=== PATIENT | female | born 1955 | race African-American/Black ===

== ENCOUNTER 2016-04-16 05:41 | Inpatient (IN) | payer OTHER ==
[~2016-04-16] VITALS: Ht 160 cm; Wt 123.8 kg
[2016-04-16] MEDS ORDERED: DIFLUCAN150 M1 PO (05:58)
[2016-04-16] MEDS ORDERED: VERAPAMIL ER P300 MG PO (05:58)
[2016-04-16] MEDS ORDERED: LISINOPRIL-HCT1 EAC1 PO (05:58)
--- NOTE | 2016-04-16 06:14 | ED GENERAL ADULT ---
See Addendum History of Present Illness General Chief Complaint: General Adult Stated Complaint: DRY MOUTH Source: patient Exam Limitations: no limitations Vital Signs & Intake/Output Vital Signs & Intake/Output Vital Signs Date Time Temp Pulse Resp B/P Pulse O2 O2 Flow FiO2 Ox Delivery Rate 04/16 0555 98.2 113 20 129/87 98 Room Air Allergies Coded Allergies: No Known Allergies (04/16/16) Reconcile Medications Fluconazole (Diflucan) 150 MG TABLET 1 TAB PO ONCE INFECTION (Reported) Lisinopril/Hydrochlorothiazide (Lisinopril-Hctz 20-25 MG Tab) 20 MG-25 MG TABLET 1 TAB PO DAILY HTN (Reported) Verapamil HCl (Verapamil ER Pm) 300 MG CAP24H.PCT 300 MG PO DAILY HTN ( Reported) Triage Note: PER PT DRY MOUTH COTTON MOUTH X 4 DAYS BEEN TAKING FLUCONAZOLE Q WEEK X 4. TONGUE ALL BLISTERY AND DIZZY FOR A WEEK. Triage Nurses Notes Reviewed? yes Onset: Gradual Duration: day(s): Timing: recent history Injury Environment: home Severity: mild, moderate Modifying Factors: Improves With: rest. HPI: 60 yo woman h/o hypertension, presents with dry mouth for the past 3-4 days. She notes that she has been having an itchy rash in her external genitalia for the past several weeks. She has been taking diflucan weekly for the past three weeks, "but it makes my mouth dry so I won't take it any more." She notes polydipsia and polyuria. No fever, chills, chest pain, shortness of breath, diarrhea, nausea, vomiting. (GALDINO ALMANZA,GINGER Stinson) Past History Travel History Traveled to [place] past 21 day No Medical History Any Pertinent Medical History? see below for history Neurological: NONE EENT: NONE Cardiovascular: hypertension Respiratory: NONE Gastrointestinal: NONE Hepatic: NONE Renal: NONE Musculoskeletal: NONE Psychiatric: NONE Endocrine: NONE Surgical History Surgical History: none Psychosocial History What is your primary language New Zealander Tobacco Use: Never used Family History Comment: mother with diabetes Hx Contributory? Yes (GALDINO ALMANZA,GINGER Stinson) Review of Systems Review of Systems Constitutional: Reports: no symptoms. EENTM: Reports: no symptoms. Respiratory: Reports: no symptoms. Cardiovascular: Reports: no symptoms. GI: Reports: no symptoms. Genitourinary: Reports: no symptoms. Musculoskeletal: Reports: no symptoms. Skin: Reports: no symptoms. Neurological/Psychological: Reports: no symptoms. Hematologic/Endocrine: Reports: no symptoms. Immunologic/Allergic: Reports: no symptoms. All Other Systems: Reviewed and Negative (GALDINO ALMANZA,GINGER Stinson) Physical Exam Physical Exam General Appearance: well developed/nourished, mild distress Head: atraumatic, normal appearance Eyes: Bilateral: normal appearance. Ears, Nose, Throat: normal pharynx, normal ENT inspection, dry mucosa Neck: normal inspection, supple, full range of motion Respiratory: normal breath sounds, chest non-tender, no respiratory distress, quiet respiration, lungs clear Cardiovascular: regular rate/rhythm Gastrointestinal: normal bowel sounds, soft, non-tender Back: normal inspection Extremities: normal inspection Skin: external genitalia - white creamy discharge in vulval folds c/w yeast. Core Measures ACS in differential dx? No CVA/TIA Diagnosis: No Severe Sepsis Present: No Septic Shock Present: No (GALDINO ALMANZA,GINGER Stinson) Progress Differential Diagnoses I considered the following diagnoses in my evaluation of the patient: diabetes, renal failure, dehydration, vaginal yeast infection vs other. Plan of Care: Orders Procedure Date/time Status Consistent Carbohydrate 1 04/16 L Active Patient Data 04/16 0741 Active Admit to inpatient 04/16 0733 Active Vital Signs 04/16 0733 Active Code Status 04/16 0733 Active MIXED VENOUS BLOOD GAS (GEN) 04/16 06 Active URINALYSIS 04/16 0621 Active TROPONIN LEVEL 04/16 06 Complete COMPREHENSIVE METABOLIC PANEL 04/16 06 Complete CBC WITHOUT DIFFERENTIAL 04/16 620 Complete ACETONE 04/16 620 Complete EKG 04/16 06 Active Current Medications Sig/Davian Start time Last Medication Dose Stop Time Status Admin Insulin Human Regular 100 UNIT Q24H 04/16 0700 AC (Novolin R (Insulin Drip)) Sodium Chloride 100 ML (Normal Saline 0.9%) Laboratory Tests 04/16/16 0725: Urine Color Pending, Urine Clarity Pending, Urine pH Pending, Ur Specific [place] Pending, Urine Protein Pending, Urine Ketones Pending, Urine Nitrite Pending, Urine Bilirubin Pending, Urine Urobilinogen Pending, Ur Leukocyte Esterase Pending, Ur Microscopic SEDIMENT EXAMINED, Urine RBC Pending, Urine Hemoglobin Pending, Urine Glucose Pending 04/16/16 0625: Bicarbonate Actual 28 H, Mixed VBG pH 7.43 H, Mixed VBG pCO2 43, Mixed VBG O2 Saturation 66 H, P-50 (Temp Corrected) N, Carboxyhemoglobin 1.3 L, Anion Gap 16, Estimated GFR > 60, BUN/Creatinine Ratio 25.0, Glucose 752 *H, Calcium 9.3, Total Bilirubin 0.8, AST 17, ALT 31, Alkaline Phosphatase 91, Troponin I < 0.01, Total Protein 8.2, Albumin 4.1, Globulin 4.1, Albumin/Globulin Ratio 1.0 L, CBC w Diff NO MAN DIFF REQ, RBC 5.08, MCV 85.4, MCH 28.5, RDW 13.7, MPV 10.1, Gran % 53.8, Lymphocytes % 34.4, Monocytes % 7.9, Eosinophils % 2.9, Basophils % 1.0, Absolute Granulocytes 3.1, Absolute Lymphocytes 2.0, Absolute Monocytes 0.5, Absolute Eosinophils 0.2, Absolute Basophils 0.1, PUBS MCHC 33.3, Phlebotomy Draw Site VENOUS, Acetone Level NEGATIVE Patient admitted to ICU by Dr. Huitron. (ANA ROSA RDZ MD) Initial ED EKG: pending Hand-Off Endorsed To: ANA ROSA RDZ MD Endorsed Time: 0700 Pending: labs (GINGER HUITRON MD) Departure Departure Disposition: STILL A PATIENT Condition: Stable Clinical Impression Primary Impression: Hyperglycemia Secondary Impressions: Diabetes, Vaginal yeast infection Referrals: ARY ALMANZA,RENETTA Perez (PCP/Family) Referred to [facility] as new patient No Departure Forms: Customer Survey General Discharge Information Comments 04/16/16, 6:27am... pt with glucose >500 on finger stick... Implications discussed at length with patient including the diagnosis of diabetes. (GALDINO ALMANZA,GINGER Stinson) Critical Care Note Critical Care Note Critical Care Time: non-applicable (GINGER HUITRON MD)
[2016-04-16 06:34] LABS: ABSOLUTE BASOPHIL COUNT 0.1 /CUMM (0.0-0.2); ABSOLUTE EOSINOPHIL COUNT 0.2 /CUMM (0.0-0.7); ABSOLUTE GRANULOCYTE CT 3.1 /CUMM (1.4-6.5); ABSOLUTE MONOCYTE COUNT 0.5 /CUMM (0.10-0.60); EOSINOPHIL % 2.9 % (0-5); GRANULOCYTE % 53.8 % (42.2-75.2); HEMATOCRIT 43.4 % (37-47); MEAN CORPUSCULAR HGB 28.5 PG (27.0-31.0); MEAN CORPUSCULAR HGB CONC 33.3 G/DL (33.0-37.0); MEAN CORPUSCULAR VOLUME 85.4 FL (81.0-99.0); MEAN PLATELET VOLUME 10.1 FL (7.4-10.4); PLATELET COUNT 217 /CUMM (130-400); RBC DISTRIBUTION WIDTH 13.7 % (11.5-14.5); RED BLOOD CELL CT 5.08 /CUMM (4.20-5.40); WHITE BLOOD CELL COUNT 5.7 /CUMM (4.8-10.8)
--- NOTE | 2016-04-16 09:23 | History & Physical ---
ASHWINI LARA MD 04/16/16 0917: General Information and HPI MD Statement: I have seen and personally examined ANNIE BENSON and documented this H&P. The patient is a 60 year old F who presented with a patient stated chief complaint of [dry mouth, polydipsia and polyuria]. Source of Information: patient Exam Limitations: no limitations History of Present Illness: This is 60 Yr old obese female with PMH of HTN presented to ER with chief c/o 3 days history of dry mouth with difficulty swallowing, polydipsia and polyuria. Patient had tooth extracted a month ago and completed 1 week of antibiotic at that time followed by colonoscopy 3 weeks back. She started c/o genital itching 3 weeks ago and was started on Diflucan by her STAFFING CONSULTANT for yeast infection. She completed total 3 weeks course of 1 per week Diflucan. 3-5 days patient has noted significant dry mouth which she attributed to Diflucan treatment. She also reported polydipsia and polyuria with generalized weakness and occasional blurring of vision. She contacted her asphalt plant worker this morning and she recommended her to come to the emergency department for further evaluation. On arrival patient noted very dehydrated and her labs revealed significant elevated blood glucose of 752 without anion gap acidosis and her acetone level noted negative suggestive of newly diagnosed diabetes with hyperosmolar nonketotic hyperglycemia. She reported having urinary burning and itching. She also reported drinking 100% apple and grape juice for past 3 days as she was unable to tolerate water. She denies any chest pain, shortness of breath, nausea /vomiting/diarrhea, abdominal pain, fever, chills, sick contacts. Patient is very hungry and wants to try regular food. Her vitals on admission were T 98.2, HR 113, RR 20, BP 174/73, O2 sat 97% on room air. Patient received total of 8 U insulin in ER and her blood sugar went down to 453. Patient was started on IV insulin drip by ER physician after discussing the case with environmental protection geologist combination welder. Allergies/Medications Allergies: Coded Allergies: No Known Allergies (04/16/16) Home Med list Fluconazole (Diflucan) 150 MG TABLET 1 TAB PO ONCE INFECTION (Reported) Lisinopril/Hydrochlorothiazide (Lisinopril-Hctz 20-25 MG Tab) 20 MG-25 MG TABLET 1 TAB PO DAILY HTN (Reported) Verapamil HCl (Verapamil ER Pm) 300 MG CAP24H.PCT 300 MG PO DAILY HTN ( Reported) Compliance With Home Meds: GOOD Past History Travel History Traveled to [place] past 21 day No Medical History Neurological: NONE EENT: NONE Cardiovascular: hypertension Respiratory: NONE Gastrointestinal: NONE Hepatic: NONE Renal: NONE Musculoskeletal: NONE Psychiatric: NONE Endocrine: NONE Cancer(s): NONE Surgical History Surgical History: none Past Family/Social History Family History Relations & Conditions if any MOTHER FH: diabetes mellitus Psychosocial History Where do you live? Home Who Do You Live With? spouse Services at Home: None Primary Language: Telugu Smoking Status: Never Smoked ETOH Use: denies use Illicit Drug Use: denies illicit drug use Functional Ability ADLs Independent: dressing, eating, toileting, bathing. Ambulation: independent IADLs Independent: shopping, housework, finances, food prep, telephone, transportation , medication admin. Employment History Employment Unemployed Review of Systems Review of Systems Constitutional: Reports: weakness. Denies: chills, fever. EENTM: Reports: blurred vision. Cardiovascular: Denies: chest pain, orthopena, palpitations, peripheral edema. Respiratory: Denies: cough, short of breath, wheezing. GI: Denies: abdominal pain, diarrhea, nausea, vomiting. Genitourinary: Reports: frequency. Denies: pain. Musculoskeletal: Denies: back pain. Skin: Denies: rash. Neurological/Psychological: Denies: anxiety, depressed, headache, numbness, tingling. Hematologic/Endocrine: Denies: bleeding. Exam & Diagnostic Data Last 24 Hrs of Vital Signs/I&O Vital Signs Date Time Temp Pulse Resp B/P Pulse O2 O2 Flow FiO2 Ox Delivery Rate 04/16 0850 98.3 105 20 145/64 95 Room Air 04/16 0800 98.3 104 20 174/73 97 Room Air 04/16 0555 98.2 113 20 129/87 98 Room Air Intake & Output 04/16 1600 04/16 0800 04/16 0000 Intake Total 1000 1000 Output Total Balance 1000 1000 Intake, IV 1000 1000 Physical Exam General Appearance Alert, Oriented X3, Cooperative, No Acute Distress Skin No Rashes, noted dry skin HEENT Atraumatic, PERRLA, EOMI, dry mucous membrane Neck Supple Cardiovascular Regular Rate, Normal S1, Normal S2, No Murmurs Lungs Clear to Auscultation, Normal Air Movement Abdomen Normal Bowel Sounds, Soft, No Tenderness Neurological Normal Speech, Strength at 5/5 X4 Ext, Normal Tone, Sensation Intact, Cranial Nerves 3-12 NL Extremities No Edema, Normal Pulses Vascular Normal Pulses, Pulses Symmetrical Last 24 Hrs of Labs/Renny: Laboratory Tests 04/16/16 0725: Urinalysis LIGHT H, Urine Color STRAW, Urine Clarity CLEAR, Urine pH 6.0, Ur Specific [place] <= 1.005, Urine Protein NEG, Urine Ketones 40 H, Urine Nitrite NEG, Urine Bilirubin NEG, Urine Urobilinogen 0.2, Ur Leukocyte Esterase NEG, Ur Microscopic SEDIMENT EXAMINED, Urine RBC 1-3, Urine WBC 1-3 H, Ur Epithelial Cells OCCAS, Urine Hemoglobin TRACE-INTACT, Urine Glucose >=1000 H 04/16/16 0625: Bicarbonate Actual 28 H, Mixed VBG pH 7.43 H, Mixed VBG pCO2 43, Mixed VBG O2 Saturation 66 H, P-50 (Temp Corrected) N, Carboxyhemoglobin 1.3 L, Anion Gap 16, Estimated GFR > 60, BUN/Creatinine Ratio 25.0, Glucose 752 *H, Serum Osmolality Pending, Calcium 9.3, Total Bilirubin 0.8, AST 17, ALT 31, Alkaline Phosphatase 91, Troponin I < 0.01, Total Protein 8.2, Albumin 4.1, Globulin 4.1, Albumin/Globulin Ratio 1.0 L, CBC w Diff NO MAN DIFF REQ, RBC 5.08, MCV 85.4, MCH 28.5, RDW 13.7, MPV 10.1, Gran % 53.8, Lymphocytes % 34.4, Monocytes % 7.9, Eosinophils % 2.9, Basophils % 1.0, Absolute Granulocytes 3.1, Absolute Lymphocytes 2.0, Absolute Monocytes 0.5, Absolute Eosinophils 0.2, Absolute Basophils 0.1, PUBS MCHC 33.3, Phlebotomy Draw Site VENOUS, Acetone Level NEGATIVE Diagnostic Data EKG Results Sinus tachycardia with rate of 107 noted nonspecific T-wave inversion in lead 1 aVL without reciprocal changes, QTC 465 CXR Results none Assessment/Plan Assessment: This is 60-year-old obese female with past medical history of hypertension presented to ER with chief complaint of 3 day history of dry mouth, polydipsia, polyuria infrequent yeast infection found to have elevated blood sugar of 758 on admission with significant dehydration suggestive of newly diagnosed diabetes with hyperosmolar nonketotic state. 1. HHS with newly diagnosed diabetes - Admit to ICU - Continue insulin GTT and titrate - Aggressive IV fluid hydration with normal saline at 1 50 mL per hour - Once blood sugar comes down < 200, we'll switch her to subcutaneous insulin - Nutrition consult for diabetic diet - Insulin education - Repeat BEP in 4 hours to assess for metabolic derangement - Check HbA1c 2. Sinus tachycardia - Likely secondary to dehydration - Patient denies any leg swelling, or cough muscle tenderness - If persistent tachycardia will assess for blood clot 3. Hypertension - Start home antihypertensive medication including verapamil 300 mg daily, lisinopril 20 mg daily and HCTZ 25 mg daily - Monitor BP 4. Hyponatremia - Secondary to hyperosmolar state - Corrected sodium is 140 - Monitor electrolytes 5. DVT prophylaxis Subcutaneous Lovenox 6. Full code As Ranked By This Provider Problem List: 1. Hyperglycemia 2. Diabetes 3. Vaginal yeast infection 4. Sinus tachycardia 5. Hypertension Core Measures/Miscellaneous Acute Coronary Syndrome ACS Diagnosis: No Cerebrovascular Accident CVA/TIA Diagnosis: No Congestive Heart Failure CHF Diagnosis: No Venous Thromboembolism VTE Risk Factors: Age > 40, Obesity VTE Prophylaxis Ordered Inpt: Pharm- Lovenox No Mech VTE prophylaxis d/t: No contraindications No VTE Pharm Prophylaxis d/t: No contraindications VTE Diagnosis: No VTE Type: NONE VTE Confirmed by (Test): NONE Severe Sepsis Severe Sepsis Present: No Septic Shock Septic Shock Present: No Miscellaneous Documentation Attending Case Discussed With: EM TORRES M.D Primary Care Physician: RENETTA MCALLISTER MD Patient sees these Specialists OBGYN Level of Patient Care: Critical Care (CRI) Consults Needed: Consulting Specialty: Endocrinology Consulting Physician: Dr. burrows Reason for Consult: newly diagnosed diabetes, [facility] Resident Review Statement Resident Statement: examined this patient, reviewed EMR data (avail), reviewed images, amended to note Other Findings: see HPI EM TORRES MD 04/16/16 1146: Attending MD Review Statement Attending Statement Attending MD Statement: examined this patient, discuss w/resident/PA/SPRING PRODUCTION SUPERVISOR, agreed w/resident/PA/SPRING PRODUCTION SUPERVISOR, reviewed EMR data (avail), discussed with nursing, amended to note Attending Assessment/Plan: Patient seen and examined. Referred to the emergency room by asphalt plant worker due to fungal vaginitis corresponding to outpatient antifungal therapy. Found to be markedly hyperglycemic with no evidence of acidosis. Patient denies any previous history of diabetes. She does have a history of [id number] diabetes in her mother. She reports her primary care provider has no notified of elevated blood glucose in the past. She does have a history of hypertension which she reports is better controlled on her current antihypertensive medications. She is currently alert and oriented 3. She is hemodynamically stable. Plan: -I agree with admission to the intensive care unit for insulin infusion per hyperglycemia protocol. -Check hemoglobin A1c to assist in decision-making regarding oral hypoglycemic medication versus insulin therapy upon discharge. -Please provide diabetic teaching. -Endocrinology consultation was placed. Her blood glucose level is currently trending down with insulin infusion and IV hydration. -Continue blood pressure control with her SUSANNAH inhibitor. I would hold her diuretic therapy for now and resume upon discharge. She fortunately has no proteinuria on urinalysis. -Psuedohyponatremia is secondary to her hyperglycemia. Monitor serum chemistry. -DVT prophylaxis with LMWH. -Obtain vaginal swab and send for pH, microscopy and potassium hydroxide wet mount.
[2016-04-16 10:46] VITALS: BP 130/70
--- NOTE | 2016-04-16 11:46 | Admission Certification ---
Admission Certification Certification Statement - As attending physician, I certify that at the time of - admission, based on clinical presentation, severity of - symptoms, need for further diagnostic testing and - therapeutic interventions, and risk of adverse outcomes - without in-hospital treatment, in my clinical assessment, - this patient requires an acute hospital stay for a minimum - of two nights or longer. I have also considered psychsocial - factors such as support system, advanced age, financial - issues, cognitive issues, and failed out-patient treatments, - past re-admission history, safety of patient, and lack of - compliance as applicable. Specific rationale supporting this admission is: Patient requires insulin infusion.
--- NOTE | 2016-04-16 12:23 | Cons- Endocrinology ---
General Information and HPI Consulting Request Date of Consult: 04/16/16 Requested By: ICU team Reason for Consult: management of newly diagnosed DM type 2/hyperosmolar hyperglycemic state. Source of Information: patient, old records Exam Limitations: no limitations History of Present Illness: 60 y/o pradip nicaraguan female, obese female with PMH of HTN presented to ER with chief c/o 3 days history of dry mouth with difficulty swallowing, blurred vision , polydipsia and polyuria. In ER, her glucose level was 752, acetone was negative and HbA1c is pending. She received 2 liters of NS in ER. Now she is on NS 150 ml/hour, insulin drip at 4 units per hour. Her recent FSGs were 385 and 337. Repeat lab was drawn at 11: 27 am and the report is still pending. patient has felt much better at this point. Allergies/Medications Allergies: Coded Allergies: No Known Allergies (04/16/16) Home Med List: Fluconazole (Diflucan) 150 MG TABLET 1 TAB PO ONCE INFECTION (Reported) Lisinopril/Hydrochlorothiazide (Lisinopril-Hctz 20-25 MG Tab) 20 MG-25 MG TABLET 1 TAB PO DAILY HTN (Reported) Verapamil HCl (Verapamil ER Pm) 300 MG CAP24H.PCT 300 MG PO DAILY HTN ( Reported) Review of Systems Review of Systems Constitutional: Reports: see HPI, malaise. EENTM: Reports: blurred vision. Cardiovascular: Denies: chest pain. Respiratory: Denies: short of breath. GI: Denies: abdominal pain. Genitourinary: Reports: dysuria (yeast infection s/p Diflucan). Hematologic/Endocrine: Reports: polyuria, polydipsia. Past History Travel History Traveled to [facility] past 21 day No Medical History Blood Transfusion Hx: No Neurological: NONE EENT: NONE Cardiovascular: hypertension Respiratory: NONE Gastrointestinal: NONE Hepatic: NONE Renal: NONE Musculoskeletal: NONE Psychiatric: NONE Endocrine: NONE Blood Disorders: NONE Cancer(s): NONE DOCUMENT PREPARATION SPECIALIST/Reproductive: yeast infections Surgical History Surgical History: 1 Family History Relations & Conditions If Any: MOTHER FH: diabetes mellitus Psychosocial History Where Do You Live? Home Who Do You Live With? spouse Services at Home: None Primary Language: Paraguayan Smoking Status: Never Smoked ETOH Use: denies use Illicit Drug Use: denies illicit drug use Functional Ability ADLs Independent: dressing, eating, toileting, bathing. Ambulation: independent IADLs Independent: shopping, housework, finances, food prep, telephone, transportation , medication admin. Employment History Employment: Unemployed Exam & Diagnostic Data Last 24 Hrs of Vital Signs/I&O Vital Signs Date Time Temp Pulse Resp B/P Pulse O2 O2 Flow FiO2 Ox Delivery Rate 04/16 1206 101 149/71 04/16 1046 97.6 104 24 130/70 98 Room Air Room Air 04/16 1037 97 Room Air Room Air 04/16 0850 98.3 105 20 145/64 95 Room Air 04/16 0800 98.3 104 20 174/73 97 Room Air 04/16 0555 98.2 113 20 129/87 98 Room Air Intake & Output 04/16 1600 04/16 0800 04/16 0000 Intake Total 1000 1000 Output Total Balance 1000 1000 Intake, IV 1000 1000 Patient 283 lb Weight Physical Exam General Appearance: obese Neck: normal inspection Respiratory: lungs clear Cardiovascular: tachycardia Gastrointestinal: soft, non-tender Extremities: no edema Labs/Renny Results: Laboratory Tests 04/16 04/16 04/16 1127 0725 0625 Chemistry Sodium Pending Potassium Pending Chloride Pending Carbon Dioxide Pending Anion Gap Pending BUN Pending Creatinine Pending Glucose Pending Hemoglobin A1c Pending Calcium Pending Phosphorus Pending Magnesium Pending Total Bilirubin Pending AST Pending ALT Pending Albumin Pending Urines Urinalysis LIGHT H Urine Color (YEL,AMB,STR) STRAW Urine Clarity (CLEAR) CLEAR Urine pH (5.0 - 8.0) 6.0 Ur Specific [place] (1.001 - 1.035) <= 1.005 Urine Protein (NEG,<30 MG/DL) NEG Urine Ketones (NEG) 40 H Urine Nitrite (NEG) NEG Urine Bilirubin (NEG) NEG Urine Urobilinogen (0.1 - 1.0 EU/dl) 0.2 Ur Leukocyte Esterase (NEG) NEG Ur Microscopic SEDIMENT EXAMINED Urine RBC (0 - 5 /HPF) 1-3 Urine WBC (0 - 2 /HPF) 1-3 H Ur Epithelial Cells (NONE,FEW) OCCAS Urine Hemoglobin (NEG) TRACE-INTACT Urine Glucose (N MG/DL) >=1000 H 04/16 0625 Blood Gas Bicarbonate Actual (22 - 26 MEQ/L) 28 H Mixed VBG pH (7.31 - 7.41 PH) 7.43 H Mixed VBG pCO2 (41 - 51 TORR) 43 Mixed VBG O2 Saturation (35 - 45 TORR) 66 H P-50 (Temp Corrected) N Carboxyhemoglobin (1.5 - 5.0 %) 1.3 L Chemistry Sodium (137 - 145 mmol/L) 129 L Potassium (3.5 - 5.1 mmol/L) 4.4 Chloride (98 - 107 mmol/L) 84 L Carbon Dioxide (22 - 30 mmol/L) 29 Anion Gap (5 - 16) 16 BUN (7 - 17 mg/dL) 15 Creatinine (0.5 - 1.0 mg/dL) 0.6 Estimated GFR (>60 ml/min) > 60 BUN/Creatinine Ratio (7 - 25 %) 25.0 Glucose (65 - 99 mg/dL) 752 *H Serum Osmolality (285 - 295 MOSM/KG) 323 H Calcium (8.4 - 10.2 mg/dL) 9.3 Total Bilirubin (0.2 - 1.3 mg/dL) 0.8 AST (14 - 36 U/L) 17 ALT (9 - 52 U/L) 31 Alkaline Phosphatase (<127 U/L) 91 Troponin I (< 0.11 ng/ml) < 0.01 Total Protein (6.3 - 8.2 g/dL) 8.2 Albumin (3.5 - 5.0 g/dL) 4.1 Globulin (1.9 - 4.2 gm/dL) 4.1 Albumin/Globulin Ratio (1.1 - 2.2 %) 1.0 L Hematology CBC w Diff NO MAN DIFF REQ WBC (4.8 - 10.8 /CUMM) 5.7 RBC (4.20 - 5.40 /CUMM) 5.08 Hgb (12.0 - 16.0 G/DL) 14.5 Hct (37 - 47 %) 43.4 MCV (81.0 - 99.0 FL) 85.4 MCH (27.0 - 31.0 PG) 28.5 RDW (11.5 - 14.5 %) 13.7 Plt Count (130 - 400 /CUMM) 217 MPV (7.4 - 10.4 FL) 10.1 Gran % (42.2 - 75.2 %) 53.8 Lymphocytes % (20.5 - 51.1 %) 34.4 Monocytes % (1.7 - 9.3 %) 7.9 Eosinophils % (0 - 5 %) 2.9 Basophils % (0.0 - 2.0 %) 1.0 Absolute Granulocytes (1.4 - 6.5 /CUMM) 3.1 Absolute Lymphocytes (1.2 - 3.4 /CUMM) 2.0 Absolute Monocytes (0.10 - 0.60 /CUMM) 0.5 Absolute Eosinophils (0.0 - 0.7 /CUMM) 0.2 Absolute Basophils (0.0 - 0.2 /CUMM) 0.1 PUBS MCHC (33.0 - 37.0 G/DL) 33.3 Miscellaneous Phlebotomy Draw Site VENOUS Toxicology Acetone Level (NEGATIVE) NEGATIVE Assessment/Plan Assessment/Plan 60 y/o pradip nicaraguan female, obese female with PMH of HTN presented to ER with chief c/o 3 days history of dry mouth with difficulty swallowing, blurred vision , polydipsia and polyuria. She was newly diagnosed with DM and was admitted for hyperosmolar hyperglycemic state. management: 1. continue insulin drip and monitor FSGs every one hour; 2. continue current IVF; 3. monitor electrolytes; 4. it is okay to give patient fresh fruit and soup for lunch as she feels hungry ; 5. encourage patient to drink more water. 6. once her glucose level is less than 200, please inform me, then I will switch insulin drip to insulin sc regimen. 7. check lipid panel tomorrow morning. 8. DM education, nutrition consult, glucometer teaching. will follow. Consult Acknowledgment - Thank you for your consult request.
[2016-04-16 16:00] VITALS: BP 124/64
[2016-04-17] VITALS: BP 114/70
[2016-04-17 08:00] VITALS: BP 120/60
--- NOTE | 2016-04-17 11:05 | PN- Att Addend ---
Attending Addendum Attending Brief Note Patient seen and examined. Lying comfortably in bed and not in any acute distress. No issues overnight. Her blood glucose levels have improved and insulin infusion discontinued. She has been transitioned to subcutaneous insulin. She reports significantly less vaginal pruritus. Vital Signs Date Time Temp Pulse Resp B/P Pulse O2 O2 Flow FiO2 Ox Delivery Rate 04/17 08 98.6 88 20 120/60 96 Room Air 04/17 0400 97 Nasal 1.0L Cannula 04/17 0000 98.1 74 17 114/70 98 Room Air 04/16 2210 78 96/62 04/16 1600 97 Room Air Room Air 04/16 1600 97.8 98 18 124/64 97 Room Air Room Air 04/16 1206 101 149/71 Gen. appearance: Not in acute distress Heart: S1-S2 regular with no audible murmur Lungs: Good entry bilaterally, clear to auscultation Abdomen: Soft, nontender with normal bowel sounds Extremities: No pedal edema Skin: Intact with no rashes. Laboratory Tests 04/17/16 0400: Anion Gap 11, Estimated GFR > 60, Glucose 310 H, Calcium 7.9 L, Phosphorus 3.0 , Magnesium 1.9, Total Bilirubin 0.6, AST 17, ALT 26, Albumin 3.1 L, Triglycerides 190 H, Cholesterol 267 H, LDL Cholesterol, Calc 197 H, HDL Cholesterol 32 L, Cholesterol/HDL Ratio 8 H 04/16/16 2100: Anion Gap 6, Estimated GFR > 60, BUN/Creatinine Ratio 17.8 04/16/16 1127: Anion Gap 11, Estimated GFR > 60, Glucose 346 H, Calcium 8.8, Phosphorus 2.7, Magnesium 2.0, Total Bilirubin 0.5, AST 16, ALT 24, Albumin 3.7 Microbiology 04/17 1035 GENITAL: Genital Culture - ORD 04/17 0936 GENITAL: Genital Culture - ORD 04/16 1922 GENITAL: LORETTA Preparation - COMP Problems: 1. Newly diagnosed diabetes mellitus with hyperosmolar state. 2. Hypertension 3. Vaginitis For: Dyslipidemia Plan: -Continue current insulin regimen. Follow-up with the patient on his service regarding discharge medications recommendations. -Please provide patient with diabetes education and insulin teaching. -Please provide with prescription for insulin supplies. Confirm with the manager social services service that patient will be able to obtain her medications and supplies. -Downgraded to the general medical floor. -Continue antihypertensive regimen with verapamil and lisinopril. -Begin patient on statin lowering therapy with Lipitor 40 mg orally daily. -DVT prophylaxis with heparin subcutaneous. -She reports that her vaginitis is improving. LORETTA testing is negative for fungal elements. Follow-up cultures.
--- NOTE | 2016-04-17 12:02 | PN- Diabetes ---
Assessment/Plan Assessment: 60 y/o pradip wallisian female, obese female with PMH of HTN presented to ER with chief c/o 3 days history of dry mouth with difficulty swallowing, blurred vision , polydipsia and polyuria. She was newly diagnosed with DM and was admitted for hyperosmolar hyperglycemic state. Insulin drip was discontinued. She was put on Levemir 15 units twice a day, Novolog coverage before meals and Novolog coverage at bedtime. Her FSGs were 306 and 323. Plan: 1. start metformin 1000 mg twice a day with breakfast abnd with dinner; 2. increase Levemir to 20 units twice a day; 3. continue the current Novolog coverage before meals and Novolog coverage at bedtime for now; 4. monitor FSGs; 5. recommend startig patient on statin; 6. most likely patient will be on Levemir and oral antidiabetic medications upon discharge, insulin injection teaching is appreciated; 7. glucometer teaching. will follow. Subjective Subjective: Her glucose level is still > 300. Objective Last 24 Hrs of Vital Signs/I&O Vital Signs Date Time Temp Pulse Resp B/P Pulse O2 O2 Flow FiO2 Ox Delivery Rate 04/17 08 98.6 88 20 120/60 96 Room Air 04/17 0400 97 Nasal 1.0L Cannula 04/17 0000 98.1 74 17 114/70 98 Room Air 04/16 2210 78 96/62 04/16 1600 97 Room Air Room Air 04/16 1600 97.8 98 18 124/64 97 Room Air Room Air Intake & Output 04/17 1600 04/17 0800 04/17 0000 Intake Total 618 1835 Output Total 350 400 Balance 268 1435 Intake, IV 138 1235 Intake, Oral 480 600 Output, Urine 350 400 Findings Pertinent Lab/Renny Results: Laboratory Tests 04/17 04/16 0400 2100 Chemistry Sodium (137 - 145 mmol/L) 135 L 135 L Potassium (3.5 - 5.1 mmol/L) 4.1 3.7 Chloride (98 - 107 mmol/L) 98 99 Carbon Dioxide (22 - 30 mmol/L) 26 29 Anion Gap (5 - 16) 11 6 BUN (7 - 17 mg/dL) 16 16 Creatinine (0.5 - 1.0 mg/dL) 0.7 0.9 Estimated GFR (>60 ml/min) > 60 > 60 BUN/Creatinine Ratio (7 - 25 %) 17.8 Glucose (65 - 99 mg/dL) 310 H Calcium (8.4 - 10.2 mg/dL) 7.9 L Phosphorus (2.5 - 4.5 mg/dL) 3.0 Magnesium (1.6 - 2.3 mg/dL) 1.9 Total Bilirubin (0.2 - 1.3 mg/dL) 0.6 AST (14 - 36 U/L) 17 ALT (9 - 52 U/L) 26 Albumin (3.5 - 5.0 g/dL) 3.1 L Triglycerides (<150 mg/dL) 190 H Cholesterol (<200 MG/DL) 267 H LDL Cholesterol, Calc (65 - 129 mg/dL) 197 H HDL Cholesterol (40 - 60 mg/dL) 32 L Cholesterol/HDL Ratio (0.00 - 4.23 %) 8 H
[2016-04-17 12:48] VITALS: BP 130/78
--- NOTE | 2016-04-17 14:44 | PN- Housestaff ---
Subjective Follow-up For: Hyperglycemic hyperosmolar state vaginitis Complaints: vaginal itching Tele-Events Since Last Visit: Sinus tachy and sinus rhythm HR 94-104. Subjective: I saw and examined the patient today. She is alert and oriented today, lying comfortably on her bed. She is doing much better, denies any increased thirst/ urination. She denies any fever, chills, abdominal pain, nausea, vomiting, diarrhea. Review of Systems Constitutional: Reports: no symptoms, see HPI. EENTM: Reports: no symptoms. Gastrointestinal: Reports: no symptoms. Comments: ROS negative except the above. Objective Last 24 Hrs of Vital Signs/I&O Vital Signs Date Time Temp Pulse Resp B/P Pulse O2 O2 Flow FiO2 Ox Delivery Rate 04/17 1248 98.2 98 18 130/78 96 Room Air Room Air 04/17 0800 98.6 88 20 120/60 96 Room Air 04/17 0400 97 Nasal 1.0L Cannula 04/17 0000 98.1 74 17 114/70 98 Room Air 04/16 2210 78 96/62 04/16 1600 97 Room Air Room Air 04/16 1600 97.8 98 18 124/64 97 Room Air Room Air Intake & Output 04/17 1600 04/17 0800 04/17 0000 Intake Total 618 1835 Output Total 350 400 Balance 268 1435 Intake, IV 138 1235 Intake, Oral 480 600 Output, Urine 350 400 Patient 128.367 kg Weight Physical Exam General Appearance: Alert, Oriented X3, Cooperative, No Acute Distress Skin: No Rashes, No Breakdown HEENT: Atraumatic, PERRLA Neck: Supple, No JVD Cardiovascular: Regular Rate, Normal S1, Normal S2, No Murmurs Lungs: Clear to Auscultation, Normal Air Movement Abdomen: Normal Bowel Sounds, Soft, No Tenderness Neurological: Normal Speech, Strength at 5/5 X4 Ext Extremities: No Clubbing, No Cyanosis, No Edema Vascular: Pulses Symmetrical Reproductive (FEMALE) vaginal itching and reddish discharge. Current Medications: Current Medications Sig/Davian Start time Last Medication Dose Route Stop Time Status Admin Acetaminophen 650 MG Q6P PRN 04/16 0845 AC PO Atorvastatin Calcium 40 MG 1700 04/17 1700 AC PO Benzocaine/Menthol 1 MARLENI Q2P PRN 04/16 2115 AC 04/16 PO 2235 Enoxaparin Sodium 40 MG DAILY 04/16 1000 AC 04/17 SC 1018 Insulin Aspart 0 TIDAC 04/17 0800 AC 04/17 SC 1155 Insulin Detemir 20 UNITS BID 04/17 2200 AC SC Insulin Detemir 15 UNITS BID 04/17 0030 DC 04/17 SC 1019 Insulin Human Regular 100 UNIT Q24H 04/16 0700 DC 04/16 Sodium Chloride 100 ML IV 2358 Lisinopril 20 MG DAILY 04/16 1000 AC 04/17 PO 1018 Magnesium Oxide 400 MG ONE ONE 04/17 0830 DC 04/17 PO 04/17 0831 1018 Metformin HCl 1,000 MG 0800,1700 04/17 1200 AC 04/17 PO 1408 Morphine Sulfate 2 MG Q4P PRN 04/16 0845 AC IV Oxycodone/ 1 TAB Q6P PRN 04/16 0845 AC Acetaminophen PO Pantoprazole Sodium 40 MG ONCE ONE 04/16 1700 DC 04/16 IV 04/16 1701 1736 Patient Medication 1 UNIT 1700 04/17 1700 AC Teaching ED 04/17 1701 Sodium Chloride 1,000 ML .[id number] 04/16 0845 DC 04/16 IV 2359 Verapamil HCl 300 MG AT BEDTIME 04/16 220 AC PO Last 24 Hrs of Lab/Renny Results Last 24 Hrs of Labs/Mics: Laboratory Tests 04/17/16 0400: Anion Gap 11, Estimated GFR > 60, Glucose 310 H, Calcium 7.9 L, Phosphorus 3.0 , Magnesium 1.9, Total Bilirubin 0.6, AST 17, ALT 26, Albumin 3.1 L, Triglycerides 190 H, Cholesterol 267 H, LDL Cholesterol, Calc 197 H, HDL Cholesterol 32 L, Cholesterol/HDL Ratio 8 H 04/16/16 2100: Anion Gap 6, Estimated GFR > 60, BUN/Creatinine Ratio 17.8 Microbiology 04/17 1042 GENITAL: Genital Culture - RES 04/17 1042 GENITAL: Gram Stain - RES 04/17 0936 GENITAL: Genital Culture - COLB 04/16 1921 GENITAL: LORETTA Preparation - COMP Lines/Diet/Fluids Lines: peripheral lines Assessment/Plan Assessment: This is 60-year-old obese female with past medical history of hypertension presented to ER with chief complaint of 3 day history of dry mouth, polydipsia, polyuria infrequent yeast infection found to have elevated blood sugar of 758 on admission with significant dehydration suggestive of newly diagnosed diabetes with hyperosmolar nonketotic state. [facility] with newly diagnosed diabetes * Admited to ICU and transfered to general medicine today as insulin drip was discontinued and started on a SC sliding scale. * Still her blood sugars are in 300's indicating high insulin resistance. * Currently on levemir 20units BID and metformin 1000mg BID. * Nutrition consult for diabetic diet * Insulin education and glucometer teaching. * Follow HbA1c and blood sugar levels. Vaginitis * patient complains of itching in the vaginal region along with burning pain during urination * She is not placed on any blank * vaginal LORETTA/microscopy negative for yeast infection * Genital culture is pending. Hyperlipidemia * Her LDL is 190 and cholesterol level is 260 * Started on Atorvastatin 40mg from today. Sinus tachycardia * Likely secondary to dehydration * Resolved. Hypertension * her home antihypertensive medication including verapamil 300 mg daily, lisinopril 20 mg daily and HCTZ 25 mg daily are continued. Hyponatremia * Secondary to hyperosmolar state most probably * Sodium level today is 135. Will monitor closely DVT prophylaxis * Subcutaneous Lovenox Code Status * Full code Problem List: 1. Hyperglycemia 2. Diabetes 3. Vaginal yeast infection 4. Hypertension 5. Sinus tachycardia Pain Ratin Pain Location: n/a Pain Goal: Remain pain free Pain Plan: Tylenol PRN Tomorrow's Labs & Rationales: cbc bep Consulting Request: Consulting Specialty: Endocrinology Consulting Physician: Dr. burrows Reason for Consult: newly diagnosed diabetes, [facility]
--- NOTE | 2016-04-17 14:44 | Transfer of Care Summary ---
Hospital Course Course Hospital Course: This is 60-year-old obese female with past medical history of hypertension presented to ER with chief complaint of 3 day history of dry mouth, polydipsia, polyuria infrequent yeast infection found to have elevated blood sugar of 758 on admission with significant dehydration suggestive of newly diagnosed diabetes with hyperosmolar nonketotic state. Patient is initially admitted to ICU in view of insulin drip requirement. At night when her blood sugars are around 170 she is converted to SC scale. However her sugars remained in 300's indicating severe insulin resistance. The following issues are addressed in ICU HHS with newly diagnosed diabetes * Admited to ICU started on insulin drip, after stabilizing her sugars - discontinued drip and started on a SC sliding scale. * Initially palced on NS @150ml/hr and BEP checked q4hrs * Electrolytes (specifically K) repleted as needed. * Still her blood sugars are in 300's indicating high insulin resistance. * Currently placed on levemir 20units BID (intially 15units BID) and metformin 1000mg BID. * Nutrition consult for diabetic diet - on board. * Insulin education and glucometer teaching. * Follow HbA1c and blood sugar levels. Vaginitis * patient complains of itching in the vaginal region along with burning pain during urination * She is not placed on any blank * vaginal LORETTA/microscopy negative for yeast infection * Genital culture is pending. Hyperlipidemia * Her LDL is 190 and cholesterol level is 260 on 04/17/16. * Started on Atorvastatin 40mg. Sinus tachycardia * Likely secondary to dehydration * Resolved. Hypertension * her home antihypertensive medication including verapamil 300 mg daily, lisinopril 20 mg daily and HCTZ 25 mg daily are continued. Pseudohyponatremia * Secondary to hyperosmolar state most probably * Sodium level today is 135. Will monitor closely Complications: none Significant Procedures: none Pertinent Lab Results: High blood sugars - still in 300's. At admission 750's. Lipids - LDL 190 & cholesterol 260. Assessment/Plan: as above. Attending MD Review Statement Documenting Attending: EM OTRRES M.D
[2016-04-17 16:45] VITALS: BP 116/62
[2016-04-17 23:28] VITALS: BP 142/72
[2016-04-18 08:21] VITALS: BP 143/82
--- NOTE | 2016-04-18 08:28 | PN- Diabetes ---
Assessment/Plan Assessment: 60 y/o pradip [place] islander female, obese female with PMH of HTN presented to ER with chief c/o 3 days history of dry mouth with difficulty swallowing, blurred vision , polydipsia and polyuria. She was newly diagnosed with DM and was admitted for hyperosmolar hyperglycemic state. Levemir was increased to 20 units twice a day; she is on metformin 1000 mg twice a day, Novolog coverage before meals and Novolog coverage at bedtime. Her FSGs were 306, 232, 276 and 246. She complains of having discomfort in genital area. Culture is pending. Plan: 1. increase Levemir to 24 units twice a day; 2. continue metformin 1000 mg twice a day; 3. continue the current Novolog coverage before meals and novolog coverage at bedtime; 4. monitor FSGs. will follow. Subjective Subjective: She complains of having discomfort in genital area. Objective Last 24 Hrs of Vital Signs/I&O Vital Signs Date Time Temp Pulse Resp B/P Pulse O2 O2 Flow FiO2 Ox Delivery Rate 04/18 0821 98.5 90 20 143/82 95 Room Air 04/17 2328 98.3 92 22 142/72 93 Room Air 04/17 2158 96 148/76 04/17 1645 98.2 93 22 116/62 95 Room Air 04/17 1248 98.2 98 18 130/78 96 Room Air Room Air Intake & Output 04/18 1600 04/18 0800 04/18 0000 Intake Total 480 480 Output Total Balance 480 480 Intake, Oral 480 480 Patient 273 lb Weight Findings Pertinent Lab/Renny Results: Laboratory Tests 04/18 0500 Chemistry Sodium Cancelled Potassium Cancelled Chloride Cancelled Carbon Dioxide Cancelled Anion Gap Cancelled BUN Cancelled Creatinine Cancelled BUN/Creatinine Ratio Cancelled
--- NOTE | 2016-04-18 10:11 | PN- Housestaff ---
JANE ALMANZA,ASHWINI 04/18/16 1010: Subjective Follow-up For: Newly diagnosed diabetes Candidal vaginitis Complaints: no complaints Subjective: Patient feels much better her symptoms of dry mouth and polydipsia has improved. She claims using miconazole cream for vaginal itching. She denies any chest pain, nausea, shortness of breath, vomiting, abdominal pain, urinary frequency or burning. Review of Systems Constitutional: Denies: chills, fever, weakness. EENTM: Denies: double vision. Cardiovascular: Denies: chest pain, orthopena, peripheral edema. Respiratory: Denies: cough, short of breath. Gastrointestinal: Denies: abdominal pain, diarrhea, nausea, vomiting. Genitourinary: Denies: dysuria. Musculoskeletal: Denies: back pain. Neurological/Psychological: Denies: confusion. Hematologic/Endocrine: Denies: bleeding. Objective Last 24 Hrs of Vital Signs/I&O Vital Signs Date Time Temp Pulse Resp B/P Pulse O2 O2 Flow FiO2 Ox Delivery Rate 04/18 0821 98.5 90 20 143/82 95 Room Air 04/17 2328 98.3 92 22 142/72 93 Room Air 04/17 2158 96 148/76 04/17 1645 98.2 93 22 116/62 95 Room Air 04/17 1248 98.2 98 18 130/78 96 Room Air Room Air Intake & Output 04/18 1600 04/18 0800 04/18 0000 Intake Total 480 480 Output Total Balance 480 480 Intake, Oral 480 480 Patient 273 lb Weight Physical Exam General Appearance: Alert, Oriented X3, Cooperative, No Acute Distress Skin: No Rashes HEENT: Atraumatic, PERRLA, EOMI, Mucous Membr. moist/pink Neck: Supple Cardiovascular: Regular Rate, Normal S1, Normal S2, No Murmurs Lungs: Clear to Auscultation, Normal Air Movement Abdomen: Normal Bowel Sounds, Soft, No Tenderness Neurological: Normal Speech, Strength at 5/5 X4 Ext, Normal Tone, Sensation Intact, Cranial Nerves 3-12 NL Extremities: No Edema Vascular: Normal Pulses, Pulses Symmetrical Current Medications: Current Medications Sig/Davian Start time Last Medication Dose Route Stop Time Status Admin Acetaminophen 650 MG Q6P PRN 04/16 0845 AC PO Atorvastatin Calcium 40 MG 1700 04/17 1700 AC 04/17 PO 1723 Benzocaine/Menthol 1 MARLENI Q2P PRN 04/16 2115 AC 04/16 PO 2235 Enoxaparin Sodium 40 MG DAILY 04/16 1000 AC 04/18 SC 0846 Insulin Aspart 0 TIDAC 04/17 0800 AC 04/18 SC 0849 Insulin Detemir 24 UNITS BID 04/18 1000 AC 04/18 SC 0845 Insulin Detemir 20 UNITS BID 04/17 2200 DC 04/17 SC 2158 Insulin Detemir 15 UNITS BID 04/17 0030 DC 04/17 SC 1019 Lisinopril 20 MG DAILY 04/16 1000 AC 04/18 PO 0851 Metformin HCl 1,000 MG 0800,1700 04/17 1200 AC 04/18 PO 0850 Miconazole Nitrate 1 ALESSANDRA AT BEDTIME 04/18 220 UNVr VAG Morphine Sulfate 2 MG Q4P PRN 04/16 0845 AC IV Oxycodone/ 1 TAB Q6P PRN 04/16 0845 AC Acetaminophen PO Patient Medication 1 UNIT 1700 04/17 1700 DC 04/17 Teaching ED 04/17 1701 1723 Verapamil HCl 300 MG AT BEDTIME 04/16 2200 AC 04/17 PO 2158 Last 24 Hrs of Lab/Renny Results Last 24 Hrs of Labs/Mics: Laboratory Tests 04/18/16 0752: Anion Gap 9, Estimated GFR > 60, BUN/Creatinine Ratio 25.0, Phosphorus 2.6, Magnesium 2.0 04/18/16 0500: Sodium Cancelled, Potassium Cancelled, Chloride Cancelled, Carbon Dioxide Cancelled, Anion Gap Cancelled, BUN Cancelled, Creatinine Cancelled, BUN/ Creatinine Ratio Cancelled Assessment/Plan Assessment: This is 60-year-old obese female with past medical history of hypertension presented to ER with chief complaint of 3 day history of dry mouth, polydipsia, polyuria infrequent yeast infection found to have elevated blood sugar of 758 on admission with significant dehydration suggestive of newly diagnosed diabetes with hyperosmolar nonketotic state. HHS with newly diagnosed diabetes * Admited to ICU and transfered to general medicine yesterday as insulin drip was discontinued and started on a SC sliding scale. * Still her blood sugars are in 250's indicating high insulin resistance. * Increased levemir 24units BID and metformin 1000mg BID. As per endocrinology recommendation * Nutrition consult for diabetic diet * Insulin education and glucometer teaching. * Follow HbA1c and blood sugar levels. * Appreciated endocrinology input Vaginitis * patient complains of itching in the vaginal region along with burning pain improving * vaginal LORETTA/microscopy negative for yeast infection * Genital culture mixed cristina after one day * Restarted miconazole cream Hyperlipidemia * Her LDL is 190 and cholesterol level is 260 * Started on Atorvastatin 40mg from today. Sinus tachycardia * Likely secondary to dehydration * Resolved. Hypertension * her home antihypertensive medication including verapamil 300 mg daily, lisinopril 20 mg daily and HCTZ 25 mg daily are continued. Hyponatremia * Secondary to hyperosmolar state most probably * Sodium level today is 134. Will monitor closely DVT prophylaxis * Subcutaneous Lovenox Code Status * Full code Problem List: 1. Hyperglycemia 2. Diabetes 3. Vaginal yeast infection 4. Hypertension 5. Sinus tachycardia Pain Ratin Pain Location: none Pain Goal: Pain 4 or less Pain Plan: tylenol as needed Tomorrow's Labs & Rationales: none DVT/Prophylaxis: pharmacological Consulting Request: Consulting Specialty: Endocrinology Consulting Physician: Dr. burrows Reason for Consult: newly diagnosed diabetes, [facility] ALMAN[facility] 04/18/16 1242: Attending MD Review Statement Attending Statement Attending MD Statement: examined this patient, discuss w/resident/PA/BLANKET FOLDER, agreed w/resident/PA/BLANKET FOLDER, reviewed EMR data (avail), discussed with nursing, discussed with case mgmt, amended to note Attending Assessment/Plan: Patient seen and examined, currently doing okay but claims that this morning she had vaginal itch. Her blood sugars continue to remain on the higher side therefore insulin dose has been adjusted by endocrinology. Vital Signs Date Time Temp Pulse Resp B/P Pulse O2 O2 Flow FiO2 Ox Delivery Rate 04/18 0821 98.5 90 20 143/82 95 Room Air 04/17 2328 98.3 92 22 142/72 93 Room Air 04/17 2158 96 148/76 04/17 1645 98.2 93 22 116/62 95 Room Air 04/17 1248 98.2 98 18 130/78 96 Room Air Room Air on exam; aox3, nad. cv; s1,s2, rrr. resp; clear. abd; soft, nt, bs+. ext; no edema. Laboratory Tests 04/18 04/18 0752 0500 Chemistry Sodium (137 - 145 mmol/L) 134 L Cancelled Potassium (3.5 - 5.1 mmol/L) 3.8 Cancelled Chloride (98 - 107 mmol/L) 98 Cancelled Carbon Dioxide (22 - 30 mmol/L) 28 Cancelled Anion Gap (5 - 16) 9 Cancelled BUN (7 - 17 mg/dL) 15 Cancelled Creatinine (0.5 - 1.0 mg/dL) 0.6 Cancelled Estimated GFR (>60 ml/min) > 60 BUN/Creatinine Ratio (7 - 25 %) 25.0 Cancelled Phosphorus (2.5 - 4.5 mg/dL) 2.6 Magnesium (1.6 - 2.3 mg/dL) 2.0 A/P; 60-year-old female with the newly diagnosed diabetes and vaginitis who was admitted initially with hyperosmolar state. After initial management with insulin drip in ICU, patient has been transferred to medicine floor. Blood sugars continue to remain high therefore insulin dose has been adjusted by endocrinology. Patient continues to complain of angina this. Will treat with Monistat. She was prescribed fluconazole by her technical aide as an outpatient with that she had some side effects and does not want to take it anymore. Patient is already on lisinopril. Continue other current medications. DVT prophylaxis: Lovenox. Patient needs insulin teaching as well as arrangement for home glucometer. Please speak with the social work supervisor. Possible discharge tomorrow if blood sugars are stable.
[2016-04-18] MEDS ORDERED: LEVEMIR100 UNIT/1 SC (13:22)
[2016-04-18] MEDS ORDERED: ATORVASTATIN CA40 M1 PO (13:22)
[2016-04-18] MEDS ORDERED: METFORMIN HCL1000 M1 PO (13:22)
[2016-04-18] MEDS ORDERED: NOVOLOG100 UNIT/2 SC (13:22)
[2016-04-18] MEDS ORDERED: MONISTAT 744 GM VAG (13:24)
--- NOTE | 2016-04-18 13:28 | Patient Discharge Instructions ---
Discharge Instructions General Discharge Information You were seen/treated for: Newly diagnosed diabetes Watch for these problems: Polydipsia, polyuria, urinary burning/itching, dizziness/lightheadedness/ tingling/numbness/change in mental status/weakness or any signs of hypoglycemia Special Instructions: Please follow-up with primary care physician within a week of discharge. Please follow-up with thread grinder tool Dr. burrows within a week of discharge. Please administer insulin as recommended. Diet Recommended Diet: Diabetic Activity Additional ACTIVITY Info: As tolerated Acute Coronary Syndrome Inclusion Criteria At DC or during hospital stay patient has or had the following: ACS DIAGNOSIS No Discharge Core Measures Meds if any: Prescribed or Continued at Discharge Meds if any: NOT Prescribed or Continued at Discharge Congestive Heart Failure Inclusion Criteria At DC or during hospital stay patient has or had the following: CHF DIAGNOSIS No Discharge Core Measures Meds if any: Prescribed or Continued at Discharge Meds if any: NOT Prescribed or Continued at Discharge Cerebrovascular accident Inclusion Criteria At DC or during hospital stay patient has or had the following: CVA/TIA Diagnosis No Discharge Core Measures Meds if any: Prescribed or Continued at Discharge Meds if any: NOT Prescribed or Continued at Discharge Venous thromboembolism Inclusion Criteria VTE Diagnosis No VTE Type NONE VTE Confirmed by (Test) NONE Discharge Core Measures - Per Current guidelines, there needs to be overlap - treatment for the first 5 days of Warfarin therapy. - If discharged on Warfarin prior to 5 days of - overlap therapy, the patient will need to be - assessed for post discharge needs including - *Post discharge parental anticoagulation - *Warfarin and/or parental anticoagulation education - *Follow up date to check INR post discharge At least 5 days overlap therapy as Inpatient No Meds if any: Prescribed or Continued at Discharge Note: Overlap Therapy is Warfarin and Anticoagulant Meds if any: NOT Prescribed or Continued at Discharge
--- NOTE | 2016-04-18 14:13 | Discharge Summary ---
Visit Information Visit Dates Admission Date: 04/16/16 Discharge Date: 04/19/16 Hospital Course Course Attending Physician: TRESSA FERRO MD Primary Care Physician: ARY ALMANZA,RENETTA Perez Consulting Request: Consulting Specialty: Endocrinology Consulting Physician: Dr. burrows Reason for Consult: newly diagnosed diabetes, [facility] Hospital Course: This is 60-year-old obese female with past medical history of hypertension presented to ER with chief complaint of 3 day history of dry mouth, polydipsia, polyuria infrequent yeast infection found to have elevated blood sugar of 758 on admission with significant dehydration suggestive of newly diagnosed diabetes with hyperosmolar nonketotic state. Her vitals on admission were T 98.2, HR 113, RR 20, BP 174/73, O2 sat 97% on room air. Physical Exam General Appearance Alert, Oriented X3, Cooperative, No Acute Distress Skin No Rashes, noted dry skin HEENT Atraumatic, PERRLA, EOMI, dry mucous membrane Neck Supple Cardiovascular Regular Rate, Normal S1, Normal S2, No Murmurs Lungs Clear to Auscultation, Normal Air Movement Abdomen Normal Bowel Sounds, Soft, No Tenderness Neurological Normal Speech, Strength at 5/5 X4 Ext, Normal Tone, Sensation Intact, Cranial Nerves 3-12 NL Extremities No Edema, Normal Pulses Vascular Normal Pulses, Pulses Symmetrical Pertinent labs noted for blood glucose 752, acetone negative, bicarbonate 28, sodium 129, K4.4, H&H 14.5/43.4. UA noted having significant glucose urea of more than 1000 without any signs of urinary infection EKG noted with sinus tachycardia at rate of 107 with nonspecific T-wave inversion in lead 1 and aVL [facility] with newly diagnosed diabetes Patient Admited to ICU started on insulin drip, after stabilizing her sugars - discontinued drip and started on a SC sliding scale. On admission aggressive IV fluid hydration was given as patient noted significantly dehydrated. Electrolytes repleted. As per Endocrinology Dr. burrows's recommendation patient started on metformin 1000 mg twice daily and Levemir with dose up titration to 24 units twice a day. Patient maintain also on NovoLog sliding scale for before meal coverage. Diabetes education was given and also provided education for self injection of insulin. Nutrition consult sought and nutritional dietary teaching provided. Patient is to follow-up with smutter Dr. burrows within a week of discharge for further medication adjustment. Patient recommended to check blood sugar before meals and at bedtime and keep a log of all the readings. Vaginitis The patient complained of itching in the vaginal region along with burning pain during urination. Her UA noted negative for urinary infection. vaginal LORETTA/ microscopy negative for yeast infection. Genital culture grew mixed cristina. Patient restarted on her home dose miconazole vaginal cream and asked to follow- up with her SURGICAL ASSISTANT CERTIFIED for further workup. Hyperlipidemia Her LDL is noted 190 and cholesterol level is 260 on 04/17/16 and she was Started on Atorvastatin 40mg. Sinus tachycardia On admission patient noted tachycardic with EKG revealing sinus tachycardia thought to be secondary to dehydration which resolved after appropriate hydration. Hypertension her home antihypertensive medication including verapamil 300 mg daily, lisinopril 20 mg daily and HCTZ 25 mg daily are continued during course of hospital stay. Pseudohyponatremia Patient noted having hyponatremia with sodium of 129 on admission which was thought to be secondary to significant hyperglycemia. After correction of hypoglycemic state patient's sodium level improved. DVT prophylaxis She received subcutaneous Lovenox as DVT prophylaxis Allergies: Coded Allergies: No Known Allergies (04/16/16) Pertinent Lab Results: Laboratory Tests 04/18/16 0752: Anion Gap 9, Estimated GFR > 60, BUN/Creatinine Ratio 25.0, Phosphorus 2.6, Magnesium 2.0 04/18/16 0500: Sodium Cancelled, Potassium Cancelled, Chloride Cancelled, Carbon Dioxide Cancelled, Anion Gap Cancelled, BUN Cancelled, Creatinine Cancelled, BUN/ Creatinine Ratio Cancelled 04/17/16 0400: Anion Gap 11, Estimated GFR > 60, Glucose 310 H, Calcium 7.9 L, Phosphorus 3.0 , Magnesium 1.9, Total Bilirubin 0.6, AST 17, ALT 26, Albumin 3.1 L, Triglycerides 190 H, Cholesterol 267 H, LDL Cholesterol, Calc 197 H, HDL Cholesterol 32 L, Cholesterol/HDL Ratio 8 H 04/16/16 2100: Anion Gap 6, Estimated GFR > 60, BUN/Creatinine Ratio 17.8 04/16/16 1127: Anion Gap 11, Estimated GFR > 60, Glucose 346 H, Calcium 8.8, Phosphorus 2.7, Magnesium 2.0, Total Bilirubin 0.5, AST 16, ALT 24, Albumin 3.7 04/16/16 0725: Urinalysis LIGHT H, Urine Color STRAW, Urine Clarity CLEAR, Urine pH 6.0, Ur Specific Randolph <= 1.005, Urine Protein NEG, Urine Ketones 40 H, Urine Nitrite NEG, Urine Bilirubin NEG, Urine Urobilinogen 0.2, Ur Leukocyte Esterase NEG, Ur Microscopic SEDIMENT EXAMINED, Urine RBC 1-3, Urine WBC 1-3 H, Ur Epithelial Cells OCCAS, Urine Hemoglobin TRACE-INTACT, Urine Glucose >=1000 H 04/16/16 0625: Hemoglobin A1c Pending 04/16/16 0625: Bicarbonate Actual 28 H, Mixed VBG pH 7.43 H, Mixed VBG pCO2 43, Mixed VBG O2 Saturation 66 H, P-50 (Temp Corrected) N, Carboxyhemoglobin 1.3 L, Anion Gap 16, Estimated GFR > 60, BUN/Creatinine Ratio 25.0, Glucose 752 *H, Serum Osmolality 323 H, Calcium 9.3, Total Bilirubin 0.8, AST 17, ALT 31, Alkaline Phosphatase 91, Troponin I < 0.01, Total Protein 8.2, Albumin 4.1, Globulin 4.1, Albumin/Globulin Ratio 1.0 L, CBC w Diff NO MAN DIFF REQ, RBC 5.08, MCV 85.4, MCH 28.5, RDW 13.7, MPV 10.1, Gran % 53.8, Lymphocytes % 34.4, Monocytes % 7.9, Eosinophils % 2.9, Basophils % 1.0, Absolute Granulocytes 3.1, Absolute Lymphocytes 2.0, Absolute Monocytes 0.5, Absolute Eosinophils 0.2, Absolute Basophils 0.1, PUBS MCHC 33.3, Phlebotomy Draw Site VENOUS, Acetone Level NEGATIVE Microbiology 04/17 1042 GENITAL: Genital Culture - RES 04/17 1042 GENITAL: Gram Stain - RES 04/17 0936 GENITAL: Genital Culture - CAN Cancelled: DUPLICATE 04/16 192 GENITAL: LORETTA Preparation - COMP 04/16 1010 UPPER RESP: Surveillance Culture - COMP 04/16 1010 GI: Surveillance Culture - COMP Disposition Summary Disposition Principal Diagnosis: 1. Newly diagnosed diabetes 2. HHS 3. Pseudohyponatremia 4. vulvovaginitis Additional Diagnosis: 1. Hypertension 2. Obesity Discharge Disposition: home or self care Discharge Instructions General Discharge Information Code Status: Full Code Patient's Diet: Diabetic diet Patient's Activity: As tolerated Follow-Up Instructions/Appts: Please follow-up with primary care physician Dr. Simon within a week of discharge. Please follow-up with smutter Dr. burrows within a week of discharge. Please follow-up with SURGICAL ASSISTANT CERTIFIED within a week of discharge. Medications at Discharge Discharge Medications: Stop taking the following medications: Fluconazole (Diflucan) 150 MG TABLET ORAL GIVE ONCE Qty = 1 Continue taking these medications: Lisinopril/Hydrochlorothiazide (Lisinopril-Hctz 20-25 MG Tab) 20 MG-25 MG TABLET 1 Tablet ORAL DAILY Qty = 90 Comments: LAST DOSE GIVEN 04/19/16 AT 10:00 AM Verapamil HCl (Verapamil ER Pm) 300 MG CAP24H.PCT 300 Milligram ORAL DAILY Qty = 90 Comments: LAST DOSE GIVEN 04/18/16 AT 10:00 PM Miconazole Nitrate (Monistat 7) 2 % (100 MG)-2 % (9 GRAM) CMB.PF.CRM 1 Application VAGINALLY AT BEDTIME Days = 7 Comments: LAST DOSE GIVEN 04/18/16 AT 10:00 PM Start taking the following new medications: Glimepiride (Amaryl) 4 MG TABLET 1 Tablet ORAL TWICE DAILY Qty = 60 No Refills Instructions: PLEASE TAKE ONE TABLET BEFORE BREAKFAST AND ONE BEFORE DINNER. Comments: NOT GIVEN WHILE HOSPITALIZED, TAKE LAST DOSE WITH DINNER 04/19/16 Syringe & Needle,Insulin,1 Ml (Insulin Syringe) 29 GAUGE X 7/16" DISP.SYRIN 0 Inject into fatty tissue TWICE DAILY Qty = 60 No Refills Instructions: SYRINGES FOR INSULIN Atorvastatin Calcium (Atorvastatin Calcium) 40 MG TABLET 1 Tablet ORAL DAILY Qty = 60 No Refills Comments: LAST DOSE GIVEN 04/18/16 AT 5:00 PM Insulin Detemir (Levemir) 100 UNIT/ML VIAL 24 Units Inject into fatty tissue TWICE DAILY Days = 30 No Refills Comments: LAST DOSE GIVEN 04/19/16 AT 10:00 AM Metformin HCl (Fortamet) 500 MG TAB.ER.24 1 Tablet ORAL TWICE DAILY Days = 30 No Refills Instructions: PLEASE TAKE ONE TABLET BEFORE BREAKFAST AND ONE BEFORE DINNER Comments: LAST DOSE GIVEN 04/19/16 AT 10:00 AM Copies To: ARY ALMANZA,RENETTA Perez; MINNA ALMANZA,YAEL Attending MD Review Statement Documenting Attending: PILLO ALMANZA,TRESSA
[2016-04-18 16:13] VITALS: BP 135/73
[2016-04-18 16:42] VITALS: BP 148/88
[2016-04-19 00:03] VITALS: BP 130/68
--- NOTE | 2016-04-19 07:23 | PN- Housestaff ---
ELENA CID 04/19/16 0722: Subjective Follow-up For: Newly diagnosed diabetes Candidal vaginitis Complaints: no complaints Subjective: Seen and examined the patient today morning, no new complaints, she is stable for discharge today. Review of Systems Constitutional: Reports: see HPI. Objective Last 24 Hrs of Vital Signs/I&O Vital Signs Date Time Temp Pulse Resp B/P Pulse O2 O2 Flow FiO2 Ox Delivery Rate 04/19 0003 98.5 89 19 130/68 93 Room Air 04/18 2255 140/90 04/18 1642 98.0 91 18 148/88 94 Room Air 04/18 1613 97.7 89 19 135/73 97 04/18 0821 98.5 90 20 143/82 95 Room Air Intake & Output 04/19 0800 04/19 0000 04/18 1600 Intake Total 550 1800 Output Total 600 Balance 550 1200 Intake, Oral 550 1800 Output, Urine 600 Physical Exam General Appearance: Alert, Oriented X3, Cooperative, No Acute Distress Skin: No Rashes, No Breakdown, No Significant Lesion HEENT: Atraumatic, PERRLA, EOMI Neck: Supple, No JVD Lymphatic: no lad Cardiovascular: Regular Rate, Normal S1, Normal S2, No Murmurs Lungs: Clear to Auscultation, Normal Air Movement Abdomen: Normal Bowel Sounds, Soft, No Tenderness Neurological: Strength at 5/5 X4 Ext, Normal Tone, Sensation Intact, Cranial Nerves 3-12 NL Extremities: No Clubbing, No Cyanosis, No Edema, Normal Pulses Vascular: Normal Pulses Current Medications: Current Medications Sig/Davian Start time Last Medication Dose Route Stop Time Status Admin Acetaminophen 650 MG Q6P PRN 04/16 0845 AC PO Atorvastatin Calcium 40 MG 1700 04/17 1700 AC 04/18 PO 1735 Benzocaine/Menthol 1 MARLENI Q2P PRN 04/16 2115 AC 04/16 PO 2235 Enoxaparin Sodium 40 MG DAILY 04/16 1000 AC 04/18 SC 0846 Insulin Aspart 0 TIDAC 04/17 0800 AC 04/18 SC 1730 Insulin Detemir 24 UNITS BID 04/18 1000 AC 04/18 SC 2256 Insulin Detemir 20 UNITS BID 04/17 2200 DC 04/17 SC 2158 Lisinopril 20 MG DAILY 04/16 1000 AC 04/18 PO 0851 Metformin HCl 1,000 MG 0800,1700 01/ 1200 AC 04/18 PO 1735 Miconazole Nitrate 1 ALESSANDRA AT BEDTIME 04/18 2200 AC 04/18 VAG 2256 Morphine Sulfate 2 MG Q4P PRN 04/16 0845 AC IV Oxycodone/ 1 TAB Q6P PRN 04/16 0845 AC Acetaminophen PO Verapamil HCl 300 MG AT BEDTIME 04/16 2200 AC 04/18 PO 2255 Last 24 Hrs of Lab/Renny Results Last 24 Hrs of Labs/Mics: Laboratory Tests 04/18/16 0752: Anion Gap 9, Estimated GFR > 60, BUN/Creatinine Ratio 25.0, Phosphorus 2.6, Magnesium 2.0 Lines/Diet/Fluids Restraints: none Assessment/Plan Assessment: This is 60-year-old obese female with past medical history of hypertension presented to ER with chief complaint of 3 day history of dry mouth, polydipsia, polyuria infrequent yeast infection found to have elevated blood sugar of 758 on admission with significant dehydration suggestive of newly diagnosed diabetes with hyperosmolar nonketotic state. HHS with newly diagnosed diabetes * 220, 275, 299 - FS * We'll discharge patient today on Levemir 24 units twice a day, metformin 500 twice a day, loperamide 4 mg twice a day, as per recommendations by Dr. burrows. * Insulin education and glucometer teaching. * Scripts Lancets, syringes and strips provided. * HB A1c of 16 * Appreciated endocrinology input Vaginitis * patient complains of itching in the vaginal region along with burning pain improving * vaginal LORETTA/microscopy negative for yeast infection * Genital culture mixed cristina after one day * Continue outpatient Monistat. Hyperlipidemia * Her LDL is 190 and cholesterol level is 260 * Started on Atorvastatin 40mg from today. * We'll prescribe on discharge as well. Sinus tachycardia * Likely secondary to dehydration * Resolved. Hypertension * her home antihypertensive medication including verapamil 300 mg daily, lisinopril 20 mg daily and HCTZ 25 mg daily are continued. Hyponatremia * Secondary to hyperosmolar state most probably * Sodium level today is 134. Will monitor closely DVT prophylaxis * Subcutaneous Lovenox Code Status * Full code Problem List: 1. Hyperglycemia 2. Diabetes 3. Vaginal yeast infection 4. Hypertension 5. Sinus tachycardia Pain Ratin Pain Location: ma Pain Goal: Remain pain free Pain Plan: mild pp tylenol Tomorrow's Labs & Rationales: dc Consulting Request: Consulting Specialty: Endocrinology Consulting Physician: Dr. burrows Reason for Consult: newly diagnosed diabetes, [facility] Discharge Plan Discharge Disposition: home Stable for Discharge? Yes Anticipated Discharge (Day): today If Discharged Today/In 24 Hrs: CMR done TRESSA FERRO MD 04/19/16 1335: Attending MD Review Statement Attending Statement Attending MD Statement: examined this patient, discuss w/resident/PA/BUSINESS ADMINISTRATION TEACHER, agreed w/resident/PA/BUSINESS ADMINISTRATION TEACHER, reviewed EMR data (avail), discussed with nursing, discussed with case mgmt, amended to note Attending Assessment/Plan: Patient seen and examined, feels overall better. Denies any complaints. Denies any further vaginal itching. Blood sugars are running in 200s. Seen by net finisher morning and recommendations were made in terms of her insulin as well as starting glimepiride. Patient has been kept on metformin. She was also started on statin. Patient is medically stable for discharge today and will follow-up with her primary care doctor as well as Dr. burrows as an outpatient. She continues to refuse fluconazole as this gave her side effects. Recommended to continue Monistat vaginally x 7 days.
[2016-04-19 08:00] VITALS: BP 148/82
[2016-04-19] MEDS ORDERED: AMARYL4 M1 PO (09:55)
[2016-04-19] MEDS ORDERED: INSULIN SYRING1 EA30 SC (09:58)
[2016-04-19] MEDS ORDERED: FORTAMET500 MG PO (10:15)
[2016-04-19] MEDS ORDERED: ATORVASTATIN CA40 M1 PO (10:15)
[2016-04-19] MEDS ORDERED: LEVEMIR100 UNIT/1 SC (10:15)
--- NOTE | 2016-04-19 11:55 | PN- Diabetes ---
Assessment/Plan Assessment: 60 y/o pradip croat[place] female, obese female with PMH of HTN presented to ER with chief c/o 3 days history of dry mouth with difficulty swallowing, blurred vision , polydipsia and polyuria. She was newly diagnosed with DM and was admitted for hyperosmolar hyperglycemic state. Levemir was increased to 24 units twice a day; she is on metformin 1000 mg twice a day, Novolog coverage before meals and Novolog coverage at bedtime. Her FSGs were 273, 339, 220, 275 and 231. Patient is going to be discharged home today. Plan: Discharge plan for DM: 1. Levemir 24 units twice a day 2. Metformin 1000 mg twice a day with breakfast and with dinner 3. Glimepiride 4 mg twice a day right before breakfast and right before dinner 4. monitor FSG x 3-4 times a day 5. call my office this Sunday for reporting her readings for review 6. f/u in office after discharge. Subjective Subjective: She feels fine and will go home today. Objective Last 24 Hrs of Vital Signs/I&O Vital Signs Date Time Temp Pulse Resp B/P Pulse O2 O2 Flow FiO2 Ox Delivery Rate 04/19 799 97.9 86 20 148/82 94 Room Air 04/19 0003 98.5 89 19 130/68 93 Room Air 04/18 2255 140/90 04/18 1642 98.0 91 18 148/88 94 Room Air 04/18 1613 97.7 89 19 135/73 97 Intake & Output 04/19 1600 04/19 0800 04/19 0000 Intake Total 360 550 Output Total Balance 360 550 Intake, Oral 360 550
== END 2016-04-19 14:25 | disposition home health service (06) | DRG 637 ==
LOC: ERH 05:41 → 2NB 07:33 → ERHI 07:33 → CRI 09:48 → 2NB 04-17 12:35
PROVIDERS: Internal Medicine; Pediatrics; ADMIT Internal Medicine
DX: E11.65 Type 2 diabetes mellitus with hyperglycemia (principal); E11.00 Type 2 diabetes mellitus with hyperosmolarity without nonketotic hyperglycemic-hyperosmolar coma (NKHHC); E87.1 Hypo-osmolality and hyponatremia; Z68.43 Body mass index [BMI] 50.0-59.9, adult; I10 Essential (primary) hypertension; R00.0 Tachycardia, unspecified; E86.0 Dehydration; N76.0 Acute vaginitis; E66.9 Obesity, unspecified
CPT/HCPCS: 2NBP; 87070; CCU; 36415; 81001; 82436; 87071; 93005; 93010; 96361; 96372; 96374; J1650; J1815